=== PATIENT | female | born 1945 | race Caucasian/White ===

== ENCOUNTER 2018-12-03 17:08 | Emergency (ER) | payer OTHER, BC ==
[~2018-12-03] VITALS: Ht 162.6 cm; Wt 59.9 kg
[2018-12-03] MEDS ORDERED: NORCO 5-325 TA1 EACH PO (19:56)
[2018-12-03] MEDS ORDERED: ULTRAM 50MG TAB50 MG PO (20:22)
[2018-12-03 20:45] VITALS: BP 146/53
== END 2018-12-03 20:45 ==
LOC: ER 17:08
DX: S01.21XA Laceration without foreign body of nose, initial encounter (principal); Z88.1 Allergy status to other antibiotic agents; Z88.6 Allergy status to analgesic agent; Z88.2 Allergy status to sulfonamides; W01.198A Fall on same level from slipping, tripping and stumbling with subsequent striking against other object, initial encounter; Y92.89 Other specified places as the place of occurrence of the external cause; Y93.01 Activity, walking, marching and hiking; Y99.8 Other external cause status

== ENCOUNTER 2018-12-11 11:33 | Emergency (ER) | payer OTHER, BC ==
[~2018-12-11] VITALS: Ht 162.6 cm; Wt 61.2 kg
[~2018-12-11 11:33] MED LIST: NORCO 5-325 TA1 EACH PO; ULTRAM 50MG TAB50 MG PO
[2018-12-11 11:34] VITALS: BP 142/52
== END 2018-12-11 12:26 | disposition home or self-care (01) ==
LOC: ER 11:33
DX: S01.21XD Laceration without foreign body of nose, subsequent encounter (principal); S01.412D Laceration without foreign body of left cheek and temporomandibular area, subsequent encounter; X58.XXXD Exposure to other specified factors, subsequent encounter; Z88.1 Allergy status to other antibiotic agents; Z88.2 Allergy status to sulfonamides; Z88.8 Allergy status to other drugs, medicaments and biological substances